=== PATIENT | male | born 1965 | race African-American/Black ===

== ENCOUNTER 2017-01-12 11:34 | Inpatient (IN) ==
[2017-01-12] MEDS ORDERED: CLINDAMYCIN INJ 600 MG in PREMIX 1 EACH IV STA (14:33)
[2017-01-12] MEDS ORDERED: CLINDAMYCIN INJ 50 ML IV ONE (14:54)
[2017-01-12 14:59] LABS: Basophils % 0.2 % (0.0-0.8); Eosinophils # 0.3 10*3/uL (0.0-0.87); Hematocrit 33.5 VOL% (42.0-52.0); Hemoglobin 10.9 GM/DL (14.0-18.0); Immature Granulocytes % 0.4 %; Immature Granulocytes Absolute 0.05 #; Lymphocytes # 0.8 10*3/uL (1.4-4.0); Lymphocytes % 6.1 % (21.2-54.2); Mean Corpuscular HGB Conc 32.5 GM/DL (32-36); Mean Corpuscular Hemoglobin 25 PG (27-34); Mean Corpuscular Volume 75.6 FL (87-102); Monocytes # 1.2 10*3/uL (0.11-0.8); Monocytes % 9.7 % (1.7-12.7); Neutrophils # 9.9 10*3/uL (1.4-7.4); Neutrophils % 81.6 % (38.7-73.9); Platelet Count 249 T/CUMM (130-400); Red Blood Count 4.43 MC/CUMM (3.8-5.5); Red Cell Distribution Width 15.2 % (9.3-17.3); White Blood Count 12.2 T/CUMM (4-12)
--- NOTE | 2017-01-12 15:06 | XRay Report ---
XR chest 1V portable Indication: Shortness of breath, fever Comparison: None available Findings: The heart and mediastinum are normal in size and configuration. The pulmonary vascularity is normal in caliber. No lung infiltrates, effusions, pneumothorax or other abnormality is demonstrated. Impression: Normal chest x-ray PROCEDURE INTERPRETED AT [facility] DEPARTMENT OF RADIOLOGY Final Report Signed by: Dr. Godfrey Carl
[2017-01-12 15:26] LABS: Albumin 2.8 G/DL (3.4-5.0); Bilirubin,Total 0.6 MG/DL (0.2-1.0); Calcium 8.5 MG/DL (8.5-10.1); Osmolality,Calculated 291.4 MOS/KG (273-304); Potassium 4.1 MMOL/L (3.5-5.1)
--- NOTE | 2017-01-12 15:55 | XRay Report ---
XR foot 2V RT Indication: Foot ulcer Comparison: None available Findings: No evidence of fracture seen. There is mild hallux valgus. There is soft tissue ulceration overlying the plantar distal first metatarsal. There is soft tissue swelling around the first metatarsophalangeal joint. Some degenerative changes are present however no distinct evidence of acute osteomyelitis seen.. Impression: Soft tissue swelling and ulceration around the distal first metatarsal as described above. PROCEDURE INTERPRETED AT [facility] DEPARTMENT OF RADIOLOGY Final Report Signed by: Dr. Godfrey Carl
[2017-01-12] MEDS ORDERED: ACETAMINOPHEN 500 MG TABLET PO STA (16:07)
[2017-01-12] MEDS ORDERED: ACETAMINOPHEN 500 MG TABLET ONE (16:08)
[2017-01-12] MEDS ORDERED: ZALEPLON 5 MG CAPSULE PO PRN (16:10)
[2017-01-12] MEDS ORDERED: GLUCAGON 1 MG VIAL IM PRN (16:10)
[2017-01-12] MEDS ORDERED: DEXTROSE 50% 25 GM/50 ML VIAL IV PRN (16:10)
[2017-01-12] MEDS ORDERED: ONDANSETRON 4 MG/2 ML VIAL IV PRN (16:10)
[2017-01-12] MEDS ORDERED: MORPHINE 2 MG/1 ML SYRINGE IV PRN (16:10)
--- NOTE | 2017-01-12 16:11 | Emergency Department Note ---
Jessica Sifuentes Brittany, am scribing for, and in the presence of, Raghav Loaiza MD 14:36. Josse Sifuentes Phillip K, MD, personally performed the services described in this documentation, ascribed by Vy Lopez in my presence, and it is both accurate and complete 512 . Arrival - Arrival Chief Complaint: Extremity Problem Stated Complaint: fever,swollen foot,diabetic ED Nursing Triage Note: Pt c/o ? infection to a diabetic wound on the bottom of his right foot with fever and chills since . Mode of Arrival: Wheelchair Limitations: No Limitations Source: Patient, Family Time Seen by Provider: 01/12/17 14:27 - History of Present Illness HPI Narrative: This is a 51 y/o black male, who presents to the ED with c/o right foot wound which started 6 months ago. He has a known medical Hx of diabetes and GOUT. He states he is followed by "an out town doctor" He reports he goes to see the foot clinic every Thursday. Pt reports a fever with the foot ulvcer. He denies any abd pain. Pt has no other complaints/painin the ED at this time. Pt has a PMHx of GOUT, diabetes, and GERD. PT denies a surgical hx. Pt has a family medical Hx of cancer and heart disease. Onset (ago): month(s) (6 months) Consistency: constant Severity: moderate Allergies/Adverse Reactions: Allergies Allergy/AdvReac Type Severity Reaction Status Date / Time exenatide [From Byetta] Allergy ANAPHYLAXIS Verified 12/03/16 03:44 Home Medications: Home Medications Medication Instructions Recorded Confirmed Type Dutasteride [Avodart] 0.5 mg PO DAILY #30 capsule 12/03/16 01/12/17 Rx Tamsulosin [Flomax] 0.4 mg PO DAILY 12/30/16 01/12/17 History Azithromycin [Azithromycin Z Pack] 250 mg PO DAILY 01/12/17 01/12/17 History Benzonatate 200 mg PO TID PRN 01/12/17 01/12/17 History Brimonidine 0.1% Oph Soln 1 drop BOTH EYES BID 01/12/17 01/12/17 History [Alphagan P 0.1% Oph Soln] cephALEXin [Cephalexin] 500 mg PO BID 01/12/17 01/12/17 History Review of System - Review of System 12 point system: reviewed and no additional remarkable complaints except as stated - Review of System Gastrointestinal: Absent: abdominal pain Musculoskeletal: Present: other (Ulcer to the bottom of right foot) Medical,Surgical,& Family Hx - Medical History Neurology: No history of: Seizures HEENT: History of: Dental Problems (PARTIAL DENTURE) Endocrine: History of: Diabetes Mellitus (IDDM) Genitourinary: History of: Bladder Problem (HEMATURIA), Recurring Urinary Tract Infections Gastrointestinal: History of: GERD Other: History of: MRSA - Family History Family History: Reports;: Family Cancer (BROTHER), Family Heart Disease ( BROTHERS X 3) - Social History Smoking Status: Never smoker Exam Vital Signs: Vital Signs Temperature 102.5 F H 01/12/17 13:30 Pulse Rate 115 H 01/12/17 13:30 Respiratory Rate 20 01/12/17 13:30 Blood Pressure 145/73 01/12/17 13:30 O2 Sat by Pulse Oximetry 97 01/12/17 13:30 - General General appearance: alert, in no apparent distress - Head Head exam: Present: atraumatic, normocephalic, normal inspection - Eye Eye exam: Present: normal appearance, PERRL, EOMI. Absent: nystagmus - ENT ENT exam: Present: normal exam, normal oropharynx, mucous membranes moist - Neck Neck exam: Present: normal inspection, full ROM, trachea midline, lymphadenopathy. Absent: tenderness, meningismus - Chest Chest inspection: Present: normal inspection, symmetric chest wall rise. Absent : tenderness - Respiratory Respiratory exam: Present: normal lung sounds bilaterally. Absent: rales, respiratory distress, rhonchi, stridor, wheezes - Cardiovascular Cardiovascular exam: Present: normal rhythm, tachycardia, normal heart sounds. Absent: murmur, rubs, gallop - Abdominal Exam Abdominal exam: Present: soft, normal bowel sounds. Absent: distention, tenderness, guarding, rebound, rigidity - Extremities Exam Extremities exam: Present: other (3+ swelling of the right lower leg. Patient' s leg has increased warmth and tenderness. Patient also has a 2 cm diabetic foot ulcer over the distal and of the first metatarsal plantar aspect.) - Back Exam Back exam: Present: normal inspection, full ROM. Absent: tenderness, muscle spasm, rashes - Neurological Exam Neurological exam: Present: alert, oriented X3, CN II-XII intact. Absent: motor sensory deficit - Psychiatric Psychiatric exam: Present: normal affect, normal mood. Absent: depressed, agitated, anxious, manic - Skin Skin exam: Present: warm, dry, intact, normal color. Absent: rash, cyanosis, diaphoresis Course Course Narrative: Patient discussed with nurse practitioner for the hospitalist. We will admit for IV antibiotics. Patient received his first dose of antibiotics in the ED. Results - Labs CBC & BMP: 01/12/17 14:44 01/12/17 14:44 Lab Results: I have reviewed the patients labs Labs: Laboratory Tests Laboratory Tests 01/12/17 01/12/17 14:44 14:44 WBC 12.2 H RBC 4.43 Hgb 10.9 L Hct 33.5 L MCV 75.6 L MCH 25 L MCHC 32.5 RDW 15.2 Plt Count 249 MPV 11.0 Neut % (Auto) 81.6 H Lymph % (Auto) 6.1 L [place] % (Auto) 9.7 Eos % (Auto) 2.0 Baso % (Auto) 0.2 Neut # (Auto) 9.9 H Lymph # (Auto) 0.8 L [place] # (Auto) 1.2 H Eos # (Auto) 0.3 Baso # (Auto) 0.0 Immature Gran % 0.4 Nucleated RBC % 0.0 Immature Gran # 0.05 Nucleated RBCs # 0.00 Sodium 140 Potassium 4.1 Chloride 105 Carbon Dioxide 23 Anion Gap 16.1 H BUN 23 H Creatinine 2.10 H GFR Calculation 54 BUN/Creatinine Ratio 10.00 Glucose 254 H Calculated Osmolality 291.4 Uric Acid 8.0 H Calcium 8.5 Total Bilirubin 0.60 AST 23 ALT 31 Alkaline Phosphatase 128 H Total Protein 8.0 Albumin 2.8 L Globulin 5.2 H Albumin/Globulin Ratio 0.5 L - Diagnostic Findings Procedure: Chest x-ray: report reviewed by me (Normal Chest X-ray), X-ray: report reviewed by me (Right foot X-ray: No evidence of fracture seen. There is mild hallux vagus. There is soft tissue ulceration overlying the plantar distal first metatarsal. There is soft tissue swelling around the first metarasophalangeal joint. Some degenerative changes are presetns however no distinct evidence of acute osteomyelitis seen. Soft tissue swelling and ulceration aroudn jourdan distal first metatarsal as described above. ) Disposition Clinical Impression: Cellulitis, Diabetic ulcer of right foot, Acute gouty arthritis Case discussed with: patient, patient's family Disposition: Still a Patient Condition: Guarded Additional Instructions: Admit to the hospitalist.
--- NOTE | 2017-01-12 17:50 | Hospitalist History & Physical ---
Assessment and Plan - Time spent with patient Time spent with patient: Less than 30 minutes (1) Diabetes Status: Acute Assessment and plan: Hold p.o. diabetes medicines and start sliding scale insulin. Monitor blood sugars Current Visit: Yes (2) Cellulitis Status: Acute Assessment and plan: Start Teflaro for diabetic foot infection, control fever, pain Current Visit: Yes (3) Diabetic ulcer of right foot Status: Acute Assessment and plan: Keep patient n.p.o. and consult surgery Current Visit: Yes History of Present Illness Chief complaint: Right foot infection History of present illness: Mr. Uribe is a 51-year-old -[place] male with history of diabetes, enlarged prostate, and gout presenting to the ED with fever and right foot infection. Patient has had a dorsal foot ulcer for about 6 months that has been treated by Dr. Cristobal weekly at [facility]. Patient states his last visit was last Thursday morning and the foot ulcer looked fine at that time. Patient states the next day he started running some fevers and not feeling well and he went to the [facility] clinic where they did a chest x-ray and urine and could find no source of his fevers. Patient states on Thursday he started having a little bit of swelling and discoloration of the right great toe. When he woke up this morning he was running high fevers to 101, had more edema to the right foot, and started to have some drainage. Workup today is showing a foot x-ray with soft tissue swelling and ulceration around the distal first metatarsal head with no distinct evidence of acute osteomyelitis. He is running 103 fever at this time with a pulse rate between 113 and 122. His WBCs are mildly elevated at 12.2, H&H 10.9/33.5, creatinine is 2.1, blood sugars 254 , his uric acid level is 8. Patient's chest x-ray is normal. Upon exam patient is flushed, warm to the touch and diaphoretic. Patient denies chest pain, shortness of breath, constipation, diarrhea, or abdominal pain. Patient' s right foot is edematous with cellulitis to mid valerio. He has a 2 x 2 centimeter diabetic foot ulcer on the distal aspect of the first metatarsal head that looks clean but he has severe gangrenous changes of the right great toe. Dr. Edmonds has been asked to admit for further evaluation. Patient has also been being treated by Dr. Sudheer Corrales for enlarged prostate and has a follow-up with him next week. Home Medications Medication Instructions Recorded Confirmed Type Dutasteride [Avodart] 0.5 mg PO DAILY #30 capsule 12/03/16 01/12/17 Rx Tamsulosin [Flomax] 0.4 mg PO DAILY 12/30/16 01/12/17 History Azithromycin [Azithromycin Z Pack] 250 mg PO DAILY 01/12/17 01/12/17 History Benzonatate 200 mg PO TID PRN 01/12/17 01/12/17 History Brimonidine 0.1% Oph Soln 1 drop BOTH EYES BID 01/12/17 01/12/17 History [Alphagan P 0.1% Oph Soln] cephALEXin [Cephalexin] 500 mg PO BID 01/12/17 01/12/17 History Allergies Allergy/AdvReac Type Severity Reaction Status Date / Time exenatide [From Byetta] Allergy ANAPHYLAXIS Verified 12/03/16 03:44 Medical,Surgical,& Family Hx - Medical History Neurology: No history of: Seizures HEENT: History of: Dental Problems (PARTIAL DENTURE) Endocrine: History of: Diabetes Mellitus (IDDM) Genitourinary: History of: Bladder Problem (HEMATURIA), Prostate Problems, Recurring Urinary Tract Infections Gastrointestinal: History of: GERD Other: History of: MRSA - Surgical History Additional Surgical History: Staph infection of the posterior neck requiring drainage about 7 years ago - Family History Family History: Reports;: Family Cancer (BROTHER), Family Heart Disease ( BROTHERS X 3) - Social History Smoking Status: Never smoker Frequency of Alcohol Use: None Marital Status: Lives With:: Spouse Functional capacity: independent ambulation 12 point system: reviewed and no additional remarkable complaints except as stated Review of systems: 12 point review of systems was obtained and only pertinent positives and negatives are listed in HPI Exam - Constitutional Vitals: Period Temp Pulse Resp BP Sys/Vaz Pulse Ox Last 24 Hr 100.8 F-103.0 F 113-122 20-20 145-180/73-93 97-98 General appearance: normal weight, mild distress - Head Head exam: Present: normal inspection, atraumatic - Eye Pupils: Present: JAIME - Neck Neck exam: Present: normal inspection - Respiratory Respiratory exam: Present: clear to auscultation bilaterally - Cardiovascular Cardiovascular exam: Present: tachycardia - GI/Abdominal GI/Abdominal exam: Present: normal bowel sounds - Extremities Exam Extremities exam: Present: edema - Expanded Right Lower Lower leg exam: Present: swelling, tenderness, ecchymosis, erythema Ankle exam: Present: swelling, tenderness, ecchymosis, erythema Foot/Toe exam: Present: swelling, tenderness, ecchymosis, erythema Neuro vascular tendon exam: Present: sensory deficit Gait: Present: not tested/not observed - Neurological Exam Neurological exam: Present: alert, oriented X3 - Psychiatric Psychiatric exam: Present: normal affect - Skin Skin exam: Present: warm, diaphoretic Results - Labs CBC & BMP: 01/12/17 14:44 01/12/17 14:44 Lab Results: I have reviewed the past 24 hour labs - Diagnostic Findings Procedure: X-ray: report reviewed by me (No osteomyelitis)
--- NOTE | 2017-01-12 18:07 | General Surgery Consult Note ---
Assessment and Plan (1) Diabetic ulcer of right foot Status: Acute Assessment and plan: This patient has an infected diabetic foot ulcer. I recommended resuscitation overnight and IV antibiotics and drainage of foot abscess with debridement of necrotic tissue over the ulcer tomorrow in the operating room. Blood cultures are pending. There are no findings suggestive of necrotizing soft tissue infection. The patient will be treated with antibiotics overnight. There are no indications for emergent operation this evening. Current Visit: Yes History of Present Illness Chief complaint: Fever and right foot swelling History of present illness: Mr. Uribe is a 51 year old male with a history of diabetes who presents to the hospital with worsening redness and swelling of his right foot with fevers. He has had ulcer on his right great toe plantar surface for about 4 months and this is been treated by a woodworking machine offbearer here in town but he developed redness and increased swelling over the past several days he was brought to the ER for evaluation. He was febrile in the ER up to 103 and tachycardic in the low 100s up to 122. His blood pressure is stable. His white blood cell count was 12, 000. His electrolytes reveal a creatinine of 2.1 and his electrolytes are fairly unremarkable. Sodium is normal. The patient is not acidotic. His foot x-ray shows no soft tissue gas and no evidence of osteomyelitis. Home Medications Medication Instructions Recorded Confirmed Type Dutasteride [Avodart] 0.5 mg PO DAILY #30 capsule 12/03/16 01/12/17 Rx Tamsulosin [Flomax] 0.4 mg PO DAILY 12/30/16 01/12/17 History Azithromycin [Azithromycin Z Pack] 250 mg PO DAILY 01/12/17 01/12/17 History Brimonidine 0.1% Oph Soln 1 drop BOTH EYES BID 01/12/17 01/12/17 History [Alphagan P 0.1% Oph Soln] RX: Benzonatate 200 mg PO TID PRN 01/12/17 01/12/17 History RX: cephALEXin [Cephalexin] 500 mg PO BID 01/12/17 01/12/17 History Allergies Allergy/AdvReac Type Severity Reaction Status Date / Time exenatide [From Byetta] Allergy ANAPHYLAXIS Verified 12/03/16 03:44 Medical,Surgical,& Family Hx - Medical History Neurology: No history of: Seizures HEENT: History of: Dental Problems (PARTIAL DENTURE) Endocrine: History of: Diabetes Mellitus (IDDM) Genitourinary: History of: Bladder Problem (HEMATURIA), Prostate Problems, Recurring Urinary Tract Infections Gastrointestinal: History of: GERD Other: History of: MRSA - Family History Family History: Reports;: Family Cancer (BROTHER), Family Heart Disease ( BROTHERS X 3) - Social History Smoking Status: Never smoker Frequency of Alcohol Use: None - Constitutional Constitutional: Present: as per HPI - EENT Nose, mouth and throat: Present: as per HPI - Cardiovascular Cardiovascular: Present: as per HPI - Respiratory Respiratory: Present: as per HPI - Gastrointestinal Gastrointestinal: Present: as per HPI - Genitourinary Genitourinary: Present: as per HPI - Musculoskeletal Musculoskeletal: Present: as per HPI - Neurological Neurological: Present: as per HPI - Endocrine Endocrine: Present: as per HPI Hematologic/Lymphatic: Present: as per HPI Exam - Constitutional Vitals: Period Temp Pulse Resp BP Sys/Vaz Pulse Ox Last 24 Hr 100.8 F-103.0 F 113-122 20-20 145-180/73-93 97-98 General appearance: no acute distress, over weight - Head Head exam: Present: normal inspection, normocephalic - Eye Eye exam: Present: EOMI Pupils: Present: JAIME - ENT ENT exam: Present: normal exam Mouth exam: Present: normal external inspection, normal voice - Neck Neck exam: Present: normal inspection, trachea midline - Respiratory Respiratory exam: Present: clear to auscultation bilaterally. Absent: accessory muscle use, chest wall tenderness - Cardiovascular Cardiovascular exam: Present: tachycardia. Absent: irregular rhythm, systolic murmur - GI/Abdominal GI/Abdominal exam: Present: soft. Absent: tenderness, rebound - Extremities Exam Extremities exam: Present: other (There is erythema and swelling of the right great toe and forefoot. There is some purulent fluid coming out of the ulcer over the first metatarsal. There is no crepitus or skin changes that reflect necrotizing soft tissue infection. There is cellulitis extending up onto the lower leg on the right side.) - Back Exam Back exam: Present: normal inspection - Neurological Exam Neurological exam: Present: alert, oriented X3 Speech: Present: normal - Skin Skin exam: Present: normal color, warm Results - Labs CBC & BMP: 01/12/17 14:44 01/12/17 14:44 - Diagnostic Findings Procedure: X-ray: image reviewed by me, report reviewed by me
[2017-01-12] MEDS ORDERED: LACTATED RINGERS 1,000 ML IV ONE (18:09)
[2017-01-12] MEDS ORDERED: BENZONATATE 100 MG CAPSULE PO PRN (21:16)
[2017-01-12] MEDS: SODIUM CHLORIDE 0.9% 1,000 ML IV SCH (22:12)
[2017-01-12] MEDS: INSULIN LISPRO 100 UNIT/ML SUBCUT SCH ×2 (22:12→22:13)
[2017-01-12] MEDS: ENOXAPARIN 40 MG/0.4 ML SYRINGE SUBCUT SCH (22:13)
[2017-01-13] MEDS: BRIMONIDINE 0.1% OPH SOLN 5 ML BOTTLE BOTH EYES SCH ×3 (00:05→21:13)
[2017-01-13] MEDS: LACTATED RINGERS 1,000 ML IV SCH ×3 (00:05→16:05)
[2017-01-13] MEDS: CEFTAROLINE 600 MG in SODIUM CHLORIDE 0.9% 100 ML IV SCH ×3 (00:05→21:14)
[2017-01-13] MEDS: SODIUM CHLORIDE 0.9% 1,000 ML IV SCH ×4 (02:07→16:04)
[2017-01-13 05:39] LABS: Basophils % 0.3 % (0.0-0.8); Eosinophils # 0.2 10*3/uL (0.0-0.87); Eosinophils % 2.1 % (0.00-10.9); Hematocrit 29.8 VOL% (42.0-52.0); Hemoglobin 9.5 GM/DL (14.0-18.0); Immature Granulocytes % 0.5 %; Immature Granulocytes Absolute 0.05 #; Lymphocytes # 1.3 10*3/uL (1.4-4.0); Mean Corpuscular HGB Conc 31.9 GM/DL (32-36); Mean Corpuscular Hemoglobin 25 PG (27-34); Mean Corpuscular Volume 77.6 FL (87-102); Mean Platelet Volume 11.2 FL (9.6-12.0); Monocytes # 1.2 10*3/uL (0.11-0.8); Monocytes % 11.7 % (1.7-12.7); Neutrophils # 7.4 10*3/uL (1.4-7.4); Neutrophils % 72.4 % (38.7-73.9); Platelet Count 246 T/CUMM (130-400); Red Blood Count 3.84 MC/CUMM (3.8-5.5); Red Cell Distribution Width 15.5 % (9.3-17.3); White Blood Count 10.3 T/CUMM (4-12)
[2017-01-13 06:09] LABS: Calcium 8.5 MG/DL (8.5-10.1); Magnesium 2.2 MG/DL (1.8-2.4)
--- NOTE | 2017-01-13 07:06 | General Surgery Progress Note ---
Assessment and Plan (1) Diabetic ulcer of right foot Status: Acute Assessment and plan: Plan for drainage of abscess and debridement of necrotic tissue in the OR today. This was discussed again with the patient and he would like to proceed with limb salvage procedures. He has got a palpable pulse in his right foot so this should not be a problem. There is no ostia on x-ray. Current Visit: Yes Subjective Patient reports: Present: no new complaints, feels better, fever Narrative: The patient has defervesced overnight. His creatinine is 1.6 from 2.1 yesterday. He feels better than yesterday. Tachycardia has resolved. Exam - Constitutional Vitals: Period Temp Pulse Resp BP Sys/Vaz Pulse Ox Last 24 Hr 99.2 F-102.2 F 87-106 18-20 120-142/65-75 94-97 General appearance: no acute distress, over weight - Head Head exam: Present: normal inspection, normocephalic - Eye Eye exam: Present: EOMI Pupils: Present: JAIME - ENT ENT exam: Present: normal exam Mouth exam: Present: normal external inspection, normal voice - Neck Neck exam: Present: normal inspection, trachea midline - Respiratory Respiratory exam: Present: clear to auscultation bilaterally. Absent: accessory muscle use, chest wall tenderness - Cardiovascular Cardiovascular exam: Present: RRR. Absent: systolic murmur, tachycardia - GI/Abdominal GI/Abdominal exam: Present: normal bowel sounds, soft. Absent: tenderness, rebound - Extremities Exam Extremities exam: Present: other (Erythema over the right foot and lower leg is stable.) - Back Exam Back exam: Present: normal inspection - Neurological Exam Neurological exam: Present: alert, oriented X3 Speech: Present: normal - Skin Skin exam: Present: normal color, warm Results - Labs CBC & BMP: 01/13/17 04:54 01/13/17 04:54
[2017-01-13] MEDS: INSULIN LISPRO 100 UNIT/ML SUBCUT SCH ×4 (08:40→21:13)
[2017-01-13] MEDS: TAMSULOSIN 0.4 MG CAPSULE PO SCH (08:42)
[2017-01-13] MEDS: DOCUSATE SODIUM 100 MG CAPSULE PO PRN (08:42)
[2017-01-13] MEDS: DUTASTERIDE 0.5 MG CAPSULE PO SCH (08:43)
[2017-01-13] MEDS: PANTOPRAZOLE 40 MG TABLET PO SCH (08:43)
--- NOTE | 2017-01-13 09:27 | Hospitalist Progress Note ---
Assessment and Plan (1) Cellulitis Status: Acute Current Visit: Yes Qualifiers: Site of cellulitis: extremity Site of cellulitis of extremity: lower extremity Laterality: right Qualified Code(s): L03.115 - Cellulitis of right lower limb (2) Diabetic ulcer of right foot Status: Acute Current Visit: Yes Qualifiers: Diabetes mellitus type: type 2 Qualified Code(s): E11.621 - Type 2 diabetes mellitus with foot ulcer; L97.519 - Non-pressure chronic ulcer of other part of right foot with unspecified severity (3) Diabetes Status: Acute Assessment and plan: Sliding scale insulin with Accu-Cheks Current Visit: Yes Qualifiers: Diabetes mellitus type: type 2 Hospitalist: Subjective Interval history: Patient seen and examined. Surgery consult reviewed. Plan for operative debridement today by Dr. Mo. No complaints or events overnight. Exam - Constitutional Vitals: Period Temp Pulse Resp BP Sys/Vaz Pulse Ox Last 24 Hr 99.2 F-102.2 F 87-106 18-20 120-142/65-75 94-97 General appearance: no acute distress - Head Head exam: Present: normal inspection, normocephalic - Eye Eye exam: Present: EOMI Pupils: Present: JAIME - Respiratory Respiratory exam: Present: clear to auscultation bilaterally - Cardiovascular Cardiovascular exam: Present: regular rate and rhythm - GI/Abdominal GI/Abdominal exam: Present: normal bowel sounds, soft. Absent: tenderness, rebound - Extremities Exam Extremities exam: Present: edema, other (redness and erythema have improved in the right foot.) - Expanded Right Lower Foot/Toe exam: Present: swelling, tenderness, deformity, erythema - Neurological Exam Neurological exam: Present: alert, oriented X3 - Psychiatric Psychiatric exam: Present: normal affect, normal mood Results - Labs CBC & BMP: 01/13/17 04:54 01/13/17 04:54 Lab Results: I have reviewed the past 24 hour labs
[2017-01-13] MEDS ORDERED: PROPOFOL 200 MG/20 ML VIAL IV ONE (12:19)
[2017-01-13] MEDS ORDERED: LIDOCAINE 2% 5 ML VIAL ONE (12:19)
--- NOTE | 2017-01-13 12:56 | Operative Note ---
Date of procedure: 01/13/17 Pre-op diagnosis: Right great toe diabetic foot infection with ulcer Post-op diagnosis: same Procedure: Preoperative diagnosis Infected right foot diabetic ulcer Postoperative diagnosis Same Procedures performed 1. Incision and drainage of forefoot abscess 2. Excisional debridement of necrotic skin and subcutaneous tissue right great toe measuring 10 cm Findings There is necrotic tissue down to the bone and the bone was actually partially destroyed from infection consistent with osteomyelitis. An abscess was drained this overlying this exposed cortex of the bone and this bone actually appear to have a pathologic fracture as well. Cultures were sent from the pus. The patient wanted to have a attempted toe salvage so the toe was left alone but debridement was performed back to healthy bleeding tissue and all abscess was drained. Complications None apparent Specimen Cultures from right great toe abscess blood loss Minimal Anesthesia Monitored local Indications Infected right foot diabetic ulcer Description of procedure The patient was taken to the operating room and transferred to the operating table in the supine position. Pressure points were padded and SCDs were placed the left lower extremity. The right foot was prepped with Betadine and draped sterilely. The patient was already on therapeutic antibiotics. Timeout was performed. Incision and drainage of right great toe abscess on the medial aspect of the metatarsal head was drained and cultures were sent and there is large amount of pus draining from this tissue. Excisional debridement was then performed of skin and subcutaneous tissue that was necrotic measuring 10 cm. This was done with a scalpel. There was actually the distal part of the metatarsal which had exposed cortex of the bone did appear to have a pathologic fracture here as well. The abscess cavity went to this area but the patient had not consented for a toe amputation. This was cleaned up as much as possible and we actually did get back to healthy bleeding tissue. The wound was then packed with Dakin's wet-to-dry dressing and gauze dressing was placed with cast padding and Coban. The patient was awakened from anesthesia and transferred to recovery. Postoperative plan Continue antibiotics and wound care I will discuss amputation with the patient is an option versus treatment of osteomyelitis with 6 weeks of antibiotics. Anesthesia: MAC, local Surgeon / Physician: Daniel Mo Estimated blood loss: minimal Specimens: other (cultures from right great toe) Condition: stable Disposition: PACU Results - Labs CBC & BMP: 01/13/17 04:54 01/13/17 04:54 Discharge Plan - Discharge Medications No Action Dutasteride [Avodart] 0.5 mg PO DAILY #30 capsule Benzonatate 200 mg PO TID PRN PRN Reason: Cough cephALEXin [Cephalexin] 500 mg PO BID Insulin Glargine [Lantus] 20 unit SUBCUT BEDTIME Tamsulosin [Flomax] 0.4 mg PO DAILY Brimonidine 0.1% Oph Soln [Alphagan P 0.1% Oph Soln] 1 drop BOTH EYES BID Azithromycin [Azithromycin Z Pack] 250 mg PO DAILY - Follow Up or Referral - Forms/Instructions
--- NOTE | 2017-01-13 13:02 | Anesthesia ---
Anesthesia Post OP - Post Ansesthetic Evaluation Patient seen in post op: Yes Resp: within normal limits CV: within normal limits Mental: within normal limits Temp: within normal limits [id number]: within normal limits Nausea and Vomiting: within normal limits Pain: within normal limits
[2017-01-13] MEDS ORDERED: fentaNYL 100 MCG/2 ML VIAL ONE (13:05)
[2017-01-13] MEDS ORDERED: MIDAZOLAM 2 MG/2 ML VIAL ONE (13:05)
--- NOTE | 2017-01-13 17:01 | Event Note ---
General Surgery Progress Note Chief complaint This patient is a 51-year-old man admitted with a diabetic foot ulcer infection with bacteremia treated with incision and drainage of foot abscess and excisional debridement of necrotic tissue on 01/13/2017 Interval history No events since the operating room. Patient is resting comfortably. Physical exam Afebrile, normal vital signs Right foot dressing is clean with minimal drainage looks like old blood Assessment and plan Continue antibiotics and wound care Follow-up cultures
[2017-01-13] MEDS: ENOXAPARIN 40 MG/0.4 ML SYRINGE SUBCUT SCH (21:13)
[2017-01-13] MEDS: ACETAMINOPHEN 325 MG TABLET PO PRN (21:29)
[2017-01-14] MEDS: LACTATED RINGERS 1,000 ML IV SCH (00:42)
[2017-01-14] MEDS: SODIUM CHLORIDE 0.9% 1,000 ML IV SCH ×2 (00:43→09:00)
[2017-01-14 06:53] LABS: Basophils % 0.2 % (0.0-0.8); Eosinophils # 0.2 10*3/uL (0.0-0.87); Eosinophils % 2.7 % (0.00-10.9); Hematocrit 27.5 VOL% (42.0-52.0); Hemoglobin 8.7 GM/DL (14.0-18.0); Immature Granulocytes % 0.4 %; Immature Granulocytes Absolute 0.03 #; Lymphocytes # 1.4 10*3/uL (1.4-4.0); Lymphocytes % 16.5 % (21.2-54.2); Mean Corpuscular HGB Conc 31.6 GM/DL (32-36); Mean Corpuscular Hemoglobin 24 PG (27-34); Mean Corpuscular Volume 76.4 FL (87-102); Mean Platelet Volume 11.3 FL (9.6-12.0); Monocytes # 1.1 10*3/uL (0.11-0.8); Monocytes % 13.5 % (1.7-12.7); Neutrophils # 5.5 10*3/uL (1.4-7.4); Neutrophils % 66.7 % (38.7-73.9); Platelet Count 230 T/CUMM (130-400); Red Cell Distribution Width 15.6 % (9.3-17.3); White Blood Count 8.2 T/CUMM (4-12)
--- NOTE | 2017-01-14 06:59 | Event Note ---
General Surgery Progress Note Chief complaint This patient is a 51-year-old man admitted with a diabetic foot ulcer infection with bacteremia treated with incision and drainage of foot abscess and excisional debridement of necrotic tissue on 01/13/2017 Interval history Patient had a fever to 102.1 last night but he is afebrile now. White blood cell count is normal. Hemoglobin did drop to 8.7 but there is no bleeding from the wound. Physical exam Afebrile, normal vital signs Right foot I&D site and excisional debridement site is clean with no evidence of further necrotic tissue or undrained infection. There is less erythema on the foot. There is still some erythema on the leg. Labs Blood cultures were positive for gram-positive cocci, final results pending Assessment and plan Continue antibiotics and wound care Follow-up cultures The patient will need 6 weeks of IV antibiotics for osteomyelitis I offered him a toe amputation as an alternative to this therapy but he wants to try to save his toe. In this case we need to get a social work consult for placement at [facility] for wound care and IV antibiotics.
[2017-01-14 07:30] LABS: Calcium 8.6 MG/DL (8.5-10.1); Magnesium 2.2 MG/DL (1.8-2.4); Osmolality,Calculated 289.1 MOS/KG (273-304); Potassium 4.5 MMOL/L (3.5-5.1)
[2017-01-14] MEDS: INSULIN LISPRO 100 UNIT/ML SUBCUT SCH ×4 (07:55→20:04)
[2017-01-14] MEDS: CEFTAROLINE 600 MG in SODIUM CHLORIDE 0.9% 100 ML IV SCH ×2 (08:02→20:59)
[2017-01-14] MEDS: BRIMONIDINE 0.1% OPH SOLN 5 ML BOTTLE BOTH EYES SCH ×2 (09:29→20:57)
[2017-01-14] MEDS: DUTASTERIDE 0.5 MG CAPSULE PO SCH (09:29)
[2017-01-14] MEDS: TAMSULOSIN 0.4 MG CAPSULE PO SCH (09:30)
[2017-01-14] MEDS: PANTOPRAZOLE 40 MG TABLET PO SCH (09:30)
[2017-01-14] MEDS: DOCUSATE SODIUM 100 MG CAPSULE PO PRN (09:30)
[2017-01-14] MEDS: ACETAMINOPHEN 325 MG TABLET PO PRN (12:27)
--- NOTE | 2017-01-14 14:46 | Hospitalist Progress Note ---
Assessment and Plan (1) Cellulitis Status: Acute Assessment and plan: Continue Teflaro referral for LTAC for 6 wks of abx for osteo Current Visit: Yes Qualifiers: Site of cellulitis: extremity Site of cellulitis of extremity: lower extremity Laterality: right Qualified Code(s): L03.115 - Cellulitis of right lower limb (2) Diabetic ulcer of right foot Status: Acute Current Visit: Yes Qualifiers: Diabetes mellitus type: type 2 Qualified Code(s): E11.621 - Type 2 diabetes mellitus with foot ulcer; L97.519 - Non-pressure chronic ulcer of other part of right foot with unspecified severity (3) Diabetes Status: Acute Assessment and plan: Sliding scale insulin with Accu-Cheks Current Visit: Yes Qualifiers: Diabetes mellitus type: type 2 (4) Osteomyelitis of ankle or foot, acute Status: Acute Assessment and plan: follow up final cx. 6 wks iv abx recommended Current Visit: Yes Hospitalist: Subjective Interval history: Patient seen and examined. No events overnight. Dr. Cárdenas notes reviewed. Cx noted. Referral to LTAC made for IV abx. Exam - Constitutional Vitals: Period Temp Pulse Resp BP Sys/Vaz Pulse Ox Last 24 Hr 98.1 F-102.1 F 72-92 18-20 120-145/75-84 92-98 General appearance: no acute distress - Head Head exam: Present: normal inspection, normocephalic - Respiratory Respiratory exam: Present: clear to auscultation bilaterally - Cardiovascular Cardiovascular exam: Present: regular rate and rhythm - GI/Abdominal GI/Abdominal exam: Present: normal bowel sounds, soft. Absent: tenderness, rebound - Extremities Exam Extremities exam: Present: full ROM, edema, other (redness and swelling noted in the Right lower extremity. improved with IV abx. Surgical site wrapped. ). Absent: calf tenderness - Neurological Exam Neurological exam: Present: alert, oriented X3 - Psychiatric Psychiatric exam: Present: normal affect, normal mood Results - Labs CBC & BMP: 01/14/17 06:09 01/14/17 06:09 Lab Results: I have reviewed the past 24 hour labs
[2017-01-14] MEDS: SODIUM HYPOCHLORITE 0.25% IRRIG 473 ML BOTTLE TOP SCH (16:20)
[2017-01-14] MEDS: ENOXAPARIN 40 MG/0.4 ML SYRINGE SUBCUT SCH (20:57)
[2017-01-14] MEDS ORDERED: INSULIN GLARGINE 100 UNIT/ML SUBCUT SCH (21:00)
[2017-01-15] MEDS: INSULIN LISPRO 100 UNIT/ML SUBCUT SCH ×2 (08:47→11:45)
[2017-01-15] MEDS: BRIMONIDINE 0.1% OPH SOLN 5 ML BOTTLE BOTH EYES SCH (08:47)
[2017-01-15] MEDS: PANTOPRAZOLE 40 MG TABLET PO SCH (08:48)
[2017-01-15] MEDS: TAMSULOSIN 0.4 MG CAPSULE PO SCH (08:48)
[2017-01-15] MEDS: CEFTAROLINE 600 MG in SODIUM CHLORIDE 0.9% 100 ML IV SCH (08:48)
[2017-01-15] MEDS: DUTASTERIDE 0.5 MG CAPSULE PO SCH (08:48)
[2017-01-15] MEDS: SODIUM HYPOCHLORITE 0.25% IRRIG 473 ML BOTTLE TOP SCH (08:51)
--- NOTE | 2017-01-15 08:59 | Event Note ---
General Surgery Progress Note Chief complaint This patient is a 51-year-old man admitted with a diabetic foot ulcer infection with bacteremia treated with incision and drainage of foot abscess and excisional debridement of necrotic tissue on 01/13/2017 Interval history The patient had no issues overnight. He is afebrile. His cultures have not finalized yet. Labs are acceptable Physical exam Afebrile, normal vital signs Right foot I&D site and excisional debridement site is clean with no evidence of further necrotic tissue or undrained infection. There is less erythema on the foot. There is still some erythema on the leg. Labs Blood cultures were positive for gram-positive cocci, final results pending Assessment and plan The patient is being transferred to [facility] today. I will continue to see him there. We will continue antibiotics and wound care.
--- NOTE | 2017-01-15 09:03 | Discharge Summary ---
Hospital Course - Hospital Course Hospital Course: Mr. Uribe is a 51-year-old -Citizen Of [place] male with history of diabetes, enlarged prostate, and gout presenting to the ED with fever and right foot infection. Patient has had a dorsal foot ulcer for about 6 months that has been treated by Dr. Cristobal weekly at [facility]. Patient states his last visit was last Thursday and the foot ulcer looked fine at that time. Patient states the next day he started running some fevers and not feeling well and he went to the [facility] clinic where they did a chest x-ray and urine and could find no source of his fevers. Patient states on Thursday he started having a little bit of swelling and discoloration of the right great toe. When he woke up this morning he was running high fevers to 101, had more edema to the right foot, and started to have some drainage. Workup today is showing a foot x-ray with soft tissue swelling and ulceration around the distal first metatarsal head with no distinct evidence of acute osteomyelitis. He is running 103 fever at this time with a pulse rate between 113 and 122. His WBCs are mildly elevated at 12.2, H&H 10.9/33.5, creatinine is 2.1, blood sugars 254 , his uric acid level is 8. Patient's chest x-ray is normal. Upon exam patient is flushed, warm to the touch and diaphoretic. Patient denies chest pain, shortness of breath, constipation, diarrhea, or abdominal pain. Patient' s right foot is edematous with cellulitis to mid valerio. He has a 2 x 2 centimeter diabetic foot ulcer on the distal aspect of the first metatarsal head that looks clean but he has severe gangrenous changes of the right great toe. This patient is a 51-year-old man admitted with a diabetic foot ulcer infection with bacteremia treated with incision and drainage of foot abscess and excisional debridement of necrotic tissue on 01/13/2017 The patient had no issues overnight. He is afebrile. His cultures have not finalized yet. Labs are acceptable Physical exam Afebrile, normal vital signs Right foot I&D site and excisional debridement site is clean with no evidence of further necrotic tissue or undrained infection. There is less erythema on the foot. There is still some erythema on the leg. Labs Blood cultures were positive for gram-positive cocci, final results pending Assessment and plan The patient is being transferred to [facility] today. Dr. Mo will continue to see him there. We will continue antibiotics and wound care. - Time spent with patient Time with patient DS: Greater than 30 minutes (Total discharge time for this patient, including [id number] time, clinical documentation, medication reconciliation, and discharge planning was 36 Minutes.) Diagnosis - Discharge Diagnosis (1) Cellulitis Status: Acute (2) Diabetic ulcer of right foot Status: Chronic (3) Diabetes Status: Chronic (4) Osteomyelitis of ankle or foot, acute Status: Acute (5) Bacteremia Status: Acute Discharge Plan - Discharge Data Disposition: Disch/Xfer to [facility] Condition at Discharge: Stable Discharge Diet: diabetic diet Activity: resume usual activities as tolerated, as per physical therapy Hygiene: no restrictions Contact your physician if you experience:: fever over 101, Redness or swelling, Bleeding, pain uncontrolled by pain medications - Discharge Medications New Ceftaroline [Teflaro] 600 mg IV Q12H vial Docusate Sodium Cap [Colace Cap] 100 mg PO BID PRN #0 capsule PRN Reason: Constipation Enoxaparin [Lovenox] 40 mg SUBCUT Q24H syringe Insulin Lispro [HumaLOG] See Protocol SUBCUT ACHS unit Morphine Inj 2 mg IV Q4H PRN #0 syringe PRN Reason: Pain Severe (8-10) Ondansetron Inj [Zofran Inj] 4 mg IV Q4H PRN #0 vial PRN Reason: Nausea Pantoprazole Tab [Protonix Tab] 40 mg PO DAILY tablet Zaleplon [Sonata] 5 mg PO BEDTIME PRN #0 capsule PRN Reason: Insomnia HYDROcodone/ACETAMIN 10-325 [Dayhoit 10-325] 1 tablet PO Q4H PRN #0 tablet PRN Reason: Pain Severe (8-10) Sodium Hypochlorite 0.25% Irr [Dakins 1/2 Strength 0.25% Soln] 1 applic TOP DAILY applic Continue Dutasteride [Avodart] 0.5 mg PO DAILY #30 capsule Benzonatate 200 mg PO TID PRN PRN Reason: Cough Insulin Glargine [Lantus] 20 unit SUBCUT BEDTIME Tamsulosin [Flomax] 0.4 mg PO DAILY Brimonidine 0.1% Oph Soln [Alphagan P 0.1% Oph Soln] 1 drop BOTH EYES BID Discontinued cephALEXin [Cephalexin] 500 mg PO BID Azithromycin [Azithromycin Z Pack] 250 mg PO DAILY - Follow Up or Referral Follow Up: Daniel Mo MD [Physician] - - Forms/Instructions Exam - Constitutional Vitals: Period Temp Pulse Resp BP Sys/Vaz Pulse Ox Last 24 Hr 98.2 F-99.0 F 74-89 18-20 131-145/72-83 97-98 Discharge Results Procedures and tests throughout hospitalization: Pending Orders 01/13/17 12:50 Abscess Culture Stat Anaerobic Culture Stat Labs on day of discharge: Labs from last 24 hours 01/14/17 01/14/17 01/14/17 19:30 15:47 11:20 POC Glucose 145 H 171 H 188 H Preliminary micro results at discharge 01/13/17 12:50 Abscess Culture - Preliminary Foot - Right Gram Negative Rods Gram Positive Cocci Gram Positive Cocci#2 Microstrep plus panel 1 DS: Provider Date of admission: 01/12/17 16:10 Primary care physician: . No PCP Attending physician on admission: Tamiko Edmonds MD Consults: 01/12/17 16:29 Consult to Pharmacy [CONS] Routine Reason for Pharmacy Consult: Adjust Meds Renal Funct 01/12/17 17:30 Consult to Physician [CONS] Routine Comment: severe dm foot infection Consulting Provider: Daniel Mo When should Consulting Provider be notified: Now 01/12/17 17:35 Consult to Pharmacy [CONS] Routine Reason for Pharmacy Consult: Dose/Manage Antibiotics 01/12/17 21:16 Consult to Anesthesiology [CONS] Routine Consulting Provider: Reason for Anesthesiology: Pre-op Clearance 01/14/17 07:00 Consult to Case Mgmt/Social Srvs [CONS] Routine Reason for Case Mgmt/Social Srvs: Swingbed/SNF/Assisted Consult Comment: [facility] Discharging clinician: Tamiko Edmonds MD Expected date of discharge: 01/15/17
[2017-01-15 09:23] VITALS: BP 153/89
== END 2017-01-15 11:46 | DRG 623 ==
LOC: N.ED 11:34 → N.EDINP 16:10 → N.2E 20:43
PROVIDERS: ADMIT Family Medicine; ATTEND Family Medicine